=== PATIENT | female | born 1960 | race Caucasian/White ===

== ENCOUNTER 2021-03-07 17:43 | Inpatient (IN) | payer BC, OTHER ==
[~2021-03-07] VITALS: Ht 160 cm; Wt 118.8 kg
[2021-03-07 19:46] VITALS: BP 125/67
[2021-03-07] MEDS ORDERED: VITAMIN B-6100 MG PO (20:46)
[2021-03-07] MEDS ORDERED: VITAMIN D3125 MC2 PO (20:48)
[2021-03-07] MEDS ORDERED: TRELEGY ELLIPT1 EACH (20:51)
[2021-03-07] MEDS ORDERED: ALBUTEROL2.5 MG/3 M INH (20:54)
[2021-03-07] MEDS ORDERED: PROTONIX40 M2 PO (20:55)
[2021-03-07] MEDS ORDERED: LEVOTHYROXINE75 MCG PO (20:56)
[2021-03-07] MEDS ORDERED: SINGULAIR 10 MG10 M1 PO (20:58)
[2021-03-07] MEDS ORDERED: LOSARTAN POTASS50 MG PO (20:59)
[2021-03-07] MEDS ORDERED: HYDROCHLOROTHIA25 M1 PO (21:00)
[2021-03-07] MEDS ORDERED: FLONASE 0.05%50 MCG NASAL (21:02)
[2021-03-07] MEDS ORDERED: METFORMIN HCL1000 MG PO (21:03)
[2021-03-07] MEDS ORDERED: PROAIR HFA8.5 GM INH (21:05)
[2021-03-07] MEDS ORDERED: NORVASC5 MG PO (21:06)
[2021-03-07] MEDS ORDERED: VITAMIN B COMP1 EACH PO (21:08)
[2021-03-08] VITALS: BP 115/71
--- NOTE | 2021-03-08 04:00 | NUR ---
ADMITTED THIS PATIENT FROM [facility].ON ROOM AIR BREATHING SPONTANEOUSLY.NOT IN PAIN OR DISTRESS.ADMISSION COMPLETED.INFROMED DR. JASSO OF THIS ADMISSION AND ORDERS ACRRIED OUT.HAD EPISODES OF BRADYCARDIA BUT PATIENT IS ASYMPTOMATIC.BLOOD PRESSURE HAS BEEN STABLE.ALL NEEDS ATTENDED.
[2021-03-08 05:02] VITALS: BP 110/54
[2021-03-08 06:49] LABS: CALCIUM 8.4 mg/dL (8.5-10.1); CREATININE 0.7 mg/dL (0.6-1.0); POTASSIUM 3.9 mmol/L (3.5-5.1)
--- NOTE | 2021-03-08 07:53 | EKG ---
[address] [place] [address] ELECTROCARDIOGRAM REPORT Name: FELIZ CANTU Room #: 216-[facility] IN M.R.#: [id number] Admission: 03/07/21 Attend Phys: David Scruggs MD, Discharge: Date of : 60 Report #: [id number] [facility] Test Date: 2021-03-08 Test Time: 07:30:21 Pat Name: FELIZ CANTU Department: Room: 216 Gender: F Mortgage Broker: MARTHA : 1960 Requested By: David Scruggs Order Number: [id number] MD: Jose Sandhu Measurements Intervals [place] Rate: 64 P: 14 AK: 136 QRS: -17 QRSD: 87 T: 30 QT: 458 QTc: 473 Interpretive Statements Sinus rhythm No significant abnormality No previous ECG available for comparison Electronically Signed On 03-08-2021 7:53:48 [employer] COUNSEL[employer] by Jose Sandhu [email or web address] <ELECTRONICALLY SIGNED> By: Jose Sandhu MD, [facility] 03/08/21 0753 0730 0730 Jose Sandhu MD, FACC /EPI
[2021-03-08 08:01] VITALS: BP 112/59
--- NOTE | 2021-03-08 09:36 | 2DMMODE ---
[facility] [address] 2 D/M-MODE ECHOCARDIOGRAM Name: FELIZ CANTU Room #: 216-P ADM IN M.R.#: [id number] Admission: 03/07/21 Attend Phys: David Scruggs MD, Discharge: Date of : 60 Report #: [id number] THIS REPORT FOR: cc: Cruz Bernard Kendrick FNP Santiago, Patrick MD [facility] ~ APPROVED REPORT Study performed: 03/08/2021 09:36:59 EXAM: Comprehensive 2D, Doppler, and color-flow Echocardiogram Patient Location: Bedside Room #: 216 Status: routine BSA: 2.17 HR: 59 bpm BP: 110/54 mmHg Rhythm: NSR Other Information Study Quality: Adequate Technically limited study due to COPD, morbid obesity.. Indications Chest tightness, bradycardia, short of breath. 2D Dimensions IVSd: 11.85 (7-11mm) LVOT Diam: 20.96 (18-24mm) LVDd: 48.50 mm PWd: 11.30 (7-11mm) Ascending Ao: 29.64 (22-36mm) LVDs: 31.77 (25-40mm) Left Atrium: 39.22 (27-40mm) Aortic Root: 34.09 mm Volumes Left Atrial Volume (Systole) Single Plane 4CH: 40.98 mL Single Plane 2CH: 41.14 mL LA ESV Index: 20.00 mL/m2 Aortic Valve AoV Peak Amado.: 1.39 m/s AO Peak Gr.: 7.70 mmHg LVOT Max P.53 mmHg LVOT Max V: 1.28 m/s [facility] [address] [place] [address] 2 D/M-MODE ECHOCARDIOGRAM Name: ALONDRAFELIZ L Room #: 216-P [facility] IN [facility]#: [id number] Admission: 03/07/21 Attend Phys: David Scruggs, Discharge: Date of : 60 Report #: [id number] GRADY Vmax: 3.18 cm2 Mitral Valve E/A Ratio: 1.3 MV Decel. Time: 222.64 ms MV E Max Amado.: 1.03 m/s MV A Amado.: 0.82 m/s MV PHT: 64.57 ms IVRT: 79.58 ms Pulmonary Valve PV Peak Amado.: 1.07 m/s PV Peak Gr.: 4.56 mmHg Pulmonary Vein P Vein S: 0.33 m/s P Vein D: 0.55 m/s P Vein S/D Ratio: 0.60 Tricuspid Valve TR Peak Amado.: 2.56 m/s RAP Estimate: 5.00 mmHg TR Peak Gr.: 26.12 mmHg PA Pressure: 31.00 mmHg Left Ventricle The left ventricle is normal size. There is normal LV segmental wall motion. There is normal left ventricular wall thickness. Left ventricular systolic function is normal. LVEF is 60%. The left ventricular diastolic function is normal. Right Ventricle The right ventricle is normal size. The right ventricular systolic function is normal. Atria The left atrium size is normal. The right atrium size is normal. Aortic Valve The aortic valve is normal in structure. No aortic regurgitation is present. There is no aortic valvular stenosis. Mitral Valve The mitral valve is normal in structure. Trace mitral regurgitation. Tricuspid Valve [facility] [address] [place] [address] 2 D/M-MODE ECHOCARDIOGRAM Name: CANTUFELIZ L Room #: 216-P [facility] IN .R.#: [id number] Admission: 03/07/21 Attend Phys: David Scruggs, Discharge: Date of : 60 Report #: [id number] The tricuspid valve is normal in structure. Trace to mild tricuspid regurgitation. Estimated PAP is 31mmHg. Pulmonic Valve Pulmonic valve is not well visualized. Trace pulmonic regurgitation. Great Vessels The aortic root is normal in size. The ascending aorta is normal in size. IVC is normal in size and collapses >50% with inspiration. Pericardium There is no pericardial effusion. <Conclusion> Normal left atrial size/wall thickness Ejection fraction 60% Normal right ventricle size/function Normal atrial size Normal aortic/mitral valve structure and function Trace tricuspid valve insufficiency Pulmonary systolic pressure estimated 31 mmHg Normal aortic root size No pericardial effusion <ELECTRONICALLY SIGNED> By: David Scruggs MD, FACC 03/08/21934 4 4 David Scruggs MD, FAC /INF
[2021-03-08 12:00] VITALS: BP 146/76
[2021-03-08 15:32] VITALS: BP 136/68
[2021-03-08 16:39] VITALS: BP 146/76
--- NOTE | 2021-03-08 16:46 | NUR ---
PATIENT DISCHARGED, EDUCATION DONE AT BEDSIDE WITH PATIENT NO QUESTIONS OR CONERNS AT TIME OF TEACHING. IV AND TELE REMOVED. TAKEN BY WHEELCHAIR TO MAIN ENTRANCE WHERE FAMILY AWAITS WITH PRIVATE VEHCILE.
== END 2021-03-08 16:51 | disposition home or self-care (01) | DRG 313 ==
LOC: 2N 17:43
PROVIDERS: ADMIT Internal Medicine; ATTEND Internal Medicine
DX: R07.9 Chest pain, unspecified (principal); Z68.42 Body mass index [BMI] 45.0-49.9, adult; R00.1 Bradycardia, unspecified; I10 Essential (primary) hypertension; E03.9 Hypothyroidism, unspecified; E78.00 Pure hypercholesterolemia, unspecified; E66.01 Morbid (severe) obesity due to excess calories; J44.9 Chronic obstructive pulmonary disease, unspecified; J45.909 Unspecified asthma, uncomplicated; E11.9 Type 2 diabetes mellitus without complications
CPT/HCPCS: 10081